=== PATIENT | male | born 1985 | race Native Hawaiian/Other Pacific Islander ===

== ENCOUNTER 2017-11-22 11:00 | Emergency (ER) | payer OTHER ==
[2017-11-22 11:27] VITALS: TEMP 97.8
[2017-11-22 11:42] LABS: MEAN CORPUSCULAR HEMOGLOBIN 30.8 pg (27.0-31.0); MEAN CORPUSCULAR HGB CONC 34.6 g/dL (33.0-37.0); MEAN PLATELET VOLUME 10.4 fL (7.2-11.7); RBC 5.21 Mil/uL (4.40-5.90); RED CELL DISTRIBUTION WIDTH 12.7 % (11.5-14.5); WHITE BLOOD COUNT 9.2 K/uL (4.8-10.8)
[2017-11-22] MEDS ORDERED: Sodium Chloride 0.9% 1,000 ML IV ONE (11:42)
--- NOTE | 2017-11-22 11:51 | C.PDOC ---
History Of Present Illness 33 year old male presents to the ED, referred from urgent care for new-onset diabetes. Patient complains of feeling excessively thirsty, and has been urinating a lot. Blood sugar checked at urgent care, found to be 400. Patient denies any fever, weakness, nausea, or vomiting. Time Seen by Provider: 11/22/17 11:35 Chief Complaint (Nursing): High Blood Sugar History Per: Patient History/Exam Limitations: no limitations Onset/Duration Of Symptoms: Hrs Current Symptoms Are (Timing): Still Present Current Diabetic Medications: None Treatment Prior To Provider Evaluation: Accucheck Past Medical History Reviewed: Historical Data, Nursing Documentation, Vital Signs Vital Signs: Last Vital Signs Temp 97.8 F 11/22/17 11:22 Pulse 82 11/22/17 13:46 Resp 20 11/22/17 13:46 BP 146/93 H 11/22/17 13:46 Pulse Ox 95 11/22/17 13:46 - Medical History Other PMH: ADHD Surgical History: No Surg Hx Family History: States: No Known Family Hx - Social History Hx Alcohol Use: No Hx Substance Use: No - Immunization History Hx Tetanus Toxoid Vaccination: No Hx Influenza Vaccination: No Hx Pneumococcal Vaccination: No Review Of Systems Constitutional: Positive for: Other (polydipsia, polyuria). Negative for: Fever , Weakness Gastrointestinal: Negative for: Nausea, Vomiting Physical Exam - Physical Exam Appears: Non-toxic, No Acute Distress Skin: Warm, Dry Head: Atraumatic, Normacephalic Eye(s): bilateral: Normal Inspection Oral Mucosa: Moist Neck: Normal ROM, Supple Chest: Symmetrical Cardiovascular: Rhythm Regular, No Murmur Respiratory: Normal Breath Sounds, No Accessory Muscle Use, No Rales, No Rhonchi , No Wheezing Gastrointestinal/Abdominal: Soft, No Tenderness, No Distention Extremity: Bilateral: Atraumatic, Normal Color And Temperature, Normal ROM Pulses: Left Dorsalis Pedis: Normal, Right Dorsalis Pedis: Normal Neurological/Psych: Oriented x3, Normal Speech Gait: Steady ED Course And Treatment - Laboratory Results Result Diagrams: 11/22/17 11:38 11/22/17 11:38 Lab Interpretation: Abnormal O2 Sat by Pulse Oximetry: 97 (RA) Pulse Ox Interpretation: Normal Progress Note: Treated with IVF NSS Reassessment Condition: Improved - Physician Consult Information Physician Contacted: Oliver Bang Outcome Of Conversation: follow up in office after discharge Medical Decision Making Medical Decision Making: Initial Impression: New-onset diabetes Accucheck done, finger stick is 298 on arrival. Plan: * Labs * IV Fluids Patient advised to follow up with Dr Bang in his office for further evaluation and prescriptions Disposition Discussed With .: Oliver Bang Doctor Will See Patient In The: Office Counseled Patient/Family Regarding: Studies Performed, Diagnosis, Need For Followup - Disposition Referrals: Oliver Bang MD [Staff Provider] - Disposition: HOME/ ROUTINE Disposition Time: 17:00 Condition: IMPROVED Additional Instructions: follow up with Dr Bang after discharge for further evaluation Instructions: Hyperglycemia, Adult (DC) Forms: [employer] (Hebrew) - POA Present On Arrival: None - Clinical Impression Clinical Impression: Hyperglycemia - PA / LINE SERVICER / Resident Statement MD/DO has reviewed & agrees with the documentation as recorded. - Scribe Statement The provider has reviewed the documentation as recorded by the Scribe (Michaela Zimmer) All medical record entries made by the Scribe were at my direction and personally dictated by me. I have reviewed the chart and agree that the record accurately reflects my personal performance of the history, physical exam, medical decision making, and the department course for this patient. I have also personally directed, reviewed, and agree with the discharge instructions and disposition.
[2017-11-22 11:55] LABS: ALB/GLOB RATIO 1.2 (1.0-2.1); ALBUMIN 4.6 g/dL (3.5-5.0); ALT/SGPT 62 U/L (21-72); AST/SGOT 39 U/L (17-59); BLOOD UREA NITROGEN 13 mg/dL (9-20); CALCIUM 9.1 mg/dl (8.6-10.4); GFR AFRICAN-AMERICAN > 60; GFR NON-AFRICAN AMERICAN > 60
[2017-11-22 12:18] LABS: SQUAMOUS EPITHIAL < 1 /hpf (0-5); URINE BACTERIA OCC (<OCC); URINE BILIRUBIN NEGATIVE (NEGATIVE); URINE BLOOD NEGATIVE (NEGATIVE); URINE CLARITY Clear (Clear); URINE COLOR Yellow (YELLOW); URINE GLUCOSE (UA) 3+ mg/dL (Normal); URINE LEUKOCYTE ESTERASE NEG Leu/uL (Negative); URINE PROTEIN 2+ mg/dL (NEGATIVE); URINE UROBILINOGEN NORMAL mg/dL (0.2-1.0)
[2017-11-22 13:47] VITALS: BP 146/93; PULSE 82; RESP 20
[2017-11-22 17:49] VITALS: O2SAT 97
== END 2017-11-22 14:25 | disposition home or self-care (01) ==
LOC: C.ER 11:00
DX: E11.65 Type 2 diabetes mellitus with hyperglycemia (principal)
CPT/HCPCS: 80053; 81001; 82948; 85027; 96360; 99284; J7040

== ENCOUNTER 2017-11-23 22:43 | Emergency (ER) | payer OTHER ==
[2017-11-23 23:12] VITALS: BP 153/91; PULSE 85; RESP 20; TEMP 98.3; O2SAT 100
--- NOTE | 2017-11-23 23:29 | C.PDOC ---
History Of Present Illness 32 year old male presents to the ER with a complaint of having his blood sugar elevated at home in the 300s. Patient reports he was just diagnosed with diabetes 2 days ago at an urgent care and was started on metformin by Dr. Maggie Bang, but admits he did not take his meds until this evening. Denies any physical complaints at this time. Time Seen by Provider: 11/23/17 23:08 Chief Complaint (Nursing): High Blood Sugar History Per: Patient History/Exam Limitations: no limitations Onset/Duration Of Symptoms: Hrs Current Symptoms Are (Timing): Still Present Current Diabetic Medications: Other (Metformin) Recent travel outside of the [place]: No Past Medical History Reviewed: Historical Data, Nursing Documentation, Vital Signs Vital Signs: Last Vital Signs Temp 98.3 F 11/23/17 23:05 Pulse 85 11/23/17 23:05 Resp 20 11/23/17 23:05 BP 153/91 H 11/23/17 23:05 Pulse Ox 100 11/23/17 23:28 - Medical History PMH: HTN Surgical History: Appendectomy (1993) Family History: States: Unknown Family Hx - Social History Hx Alcohol Use: No Hx Substance Use: No - Immunization History Hx Tetanus Toxoid Vaccination: No Hx Influenza Vaccination: No Hx Pneumococcal Vaccination: No Review Of Systems Except As Marked, All Systems Reviewed And Found Negative. Physical Exam - Physical Exam Appears: Non-toxic, Other (Anxious, Overweight) Skin: Normal Color, Warm, Dry Head: Atraumatic, Normacephalic Eye(s): bilateral: Normal Inspection Oral Mucosa: Moist Chest: Symmetrical, No Tenderness Cardiovascular: Rhythm Regular Respiratory: Normal Breath Sounds, No Rales, No Rhonchi, No Wheezing Gastrointestinal/Abdominal: Soft, No Tenderness Neurological/Psych: Oriented x3, Normal Speech ED Course And Treatment O2 Sat by Pulse Oximetry: 100 (Room air) Pulse Ox Interpretation: Normal Progress Note: Patient reassured, advised to continue metformin and follow up with Dr. Bang. Disposition Counseled Patient/Family Regarding: Diagnosis, Need For Followup - Disposition Referrals: Oliver Bang MD [Staff Provider] - Disposition: HOME/ ROUTINE Disposition Time: 23:30 Condition: STABLE Additional Instructions: TAKE YOUR METFORMIN TWICE DAILY INSTRUCTED FOLLOW UP WITH YOUR DOCTOR IN 1-2 DAYS RETURN TO ER IF YOU HAVE ANY CONCERNING SYMPTOMS Instructions: Type 2 Diabetes Forms: [facility] (Hungarian) Print Language: [place] - POA Present On Arrival: None - Clinical Impression Clinical Impression: Diabetes mellitus - Scribe Statement The provider has reviewed the documentation as recorded by the Scribe Randall Thorne All medical record entries made by the Scribe were at my direction and personally dictated by me. I have reviewed the chart and agree that the record accurately reflects my personal performance of the history, physical exam, medical decision making, and the department course for this patient. I have also personally directed, reviewed, and agree with the discharge instructions and disposition.
== END 2017-11-23 23:38 | disposition home or self-care (01) ==
LOC: C.ER 22:43
DX: E11.9 Type 2 diabetes mellitus without complications (principal); Z79.84 Long term (current) use of oral hypoglycemic drugs